=== PATIENT | male | born 1985 | race Caucasian/White ===

== ENCOUNTER 2020-08-09 14:14 | Emergency (ER) | payer OTHER ==
--- OUTSIDE RECORDS SUMMARY | 2020-08-09 14:23 | XMS REPORT | Summary of Care ---
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 fluticasone propionate Use 2 Sprays in 16 g 1 02/29/2020 Active 50 mcg/actuation nasal each nostril sprayIndications: daily. Seasonal allergic rhinitis, unspecified trigger, Allergic conjunctivitis of both eyes traZODone 100 mg Take 1 tablet 30 tablet 0 05/07/2020 06/06/20 20 Active tabletIndications: by mouth at Primary insomnia bedtime for 30 days. documented as of this encounter (statuses as of 05/22/2020) Active Problems No known active problemsdocumented as of this encounter (statuses as of 05/22/2020) Social History Tobacco Use Types Packs/Day Years Used Date Never Smoker Smokeless Tobacco: Never Used Alcohol Use Drinks/Week oz/Week Comments Yes 6 Cans of beer 6.0 1 x per month Sex Assigned at Date Recorded Not on file COVID-19 Exposure Response Date Recorded In the last month, have you been in contact with No / Unsure 05/12/2020 2:13 PM CDT someone who was confirmed or suspected to have Coronavirus / COVID-19? documented as of this encounter Last Filed Vital Signs Not on filedocumented in this encounter Plan of Treatment Health Maintenance Due Date Last Done Comments VARICELLA VACCINES (1 of 2 - 1985 2-dose childhood series) Depression Screening 1996 DTaP,Tdap,and Td Vaccines (1 - 2003 Tdap) INFLUENZA VACCINE (#1) 2020 PNEUMOCOCCAL 0-64 YEARS COMBINED Aged Out No longer eligible based on SERIES patient's age to complete this topic documented as of this encounter Results Not on filedocumented in this encounter Visit Diagnoses Diagnosis SORAYA (obstructive sleep apnea) Obstructive sleep apnea (adult) (pediatr ic) documented in this encounter documented as of this encounter
--- OUTSIDE RECORDS SUMMARY | 2020-08-09 14:23 | XMS REPORT | Summary of Care ---
:1985 Author Organization [facility] Address [address] [place] [address] Care Team Providers Name Role Phone Krista Perez MD Primary Care Provider Reason for Visit Reason Comments LAB covid swab Encounter Details Date Type Department Care Team Description 05/19/2020 Laboratory Only [facility] Willie Avelar MD [address] [place] [address] Dr [address] [place] [address] Suspected 2018 [facility] Only, Pcp Test Coronavirus LAB Infection (Primary Primary Care Dx) [address] [address] Allergies No Known Allergiesdocumented as of this encounter (statuses as of 05/19/2020) Medications Medication Sig Dispensed Refills Start Date [...] as of this encounter (statuses as of 05/19/2020) Active Problems No known active problemsdocumented as of this encounter (statuses as of 05/19/2020) Social History Tobacco Use Types Packs/Day Years [...] Signs Not on filedocumented in this encounter Nursing Notes Analia Vega MA - 05/19/2020 11:15 AM CDTPrasad Knight is a 34 year old male here for a Pre-op or Rule Out Covid-19 Nasopharyngeal Swab. Patient educated on plan of care for visit, swabbing technique, risks and benefits of test and length of time to receive results. Verbal consent obtained to perform test. CDC Fact Sheet for Patients provided to patient. Patient swabbed using appropriate nasopharyngeal technique, and patient tolerated well. Patient was discharged in stable condition. documented in this encounter Plan of Treatment Date Type Specialty Care Team Description 05/21/2020 Recreational Vehicle Repairer Visit Sleep Disorder Juan Avelar MD [address] [place] [address] [address] [place], [place] [id number] Diagnostic Lab, Web Sleep Name Type Priority Associated Diagnoses Order S chedule COVID-19 (ID NOW RAPID LAB STAT Suspected 2018 Ordered: 05/19/2020 TESTING) Coronavirus Infection Health Maintenance Due Date Last Done Comments [...] filedocumented in this encounter Visit Diagnoses Diagnosis Suspected 2018 Novel Coronavirus Infecti on - Primary documented in this encounter Additional Health Concerns Infection Onset Date Last Indicated Resolved Time COVID-19 Rule Out 05/19/2020 05/19/2020 documented as of this encounter documented as of this encounter
--- OUTSIDE RECORDS SUMMARY | 2020-08-09 14:23 | XMS REPORT | Summary of Care ---
:1985 Author Organization [facility] - Health Address [address] [place] [address] Care Team Providers Name Role Phone Krista Perez MD Primary Care Provider Encounter Details Date Type Department Care Team Description 05/13/2020 Orders Only [facility] Doctor Unassigned, No [address] [facility] [place] [address] [address] [place] [address] Allergies No Known Allergiesdocumented as of this encounter (statuses as of 05/13/2020) Medications Medication Sig Dispensed Refills Start Date [...] as of this encounter (statuses as of 05/13/2020) Active Problems No known active problemsdocumented as of this encounter (statuses as of 05/13/2020) Social History Tobacco Use Types Packs/Day Years [...] filedocumented in this encounter Plan of Treatment Date Type Specialty Care Team Description 05/19/2020 Laboratory Only Phlebotomy Willie Avelar MD [address] [place] [address] Dr [address] [place] [phone] Only, Pcp Test 05/21/2020 Velvet Weaver Visit Sleep Disorder Juan Avelar MD [address] [place] [address] Dr Go [address] [place] [id number] Diagnostic Lab, Web Sleep Health Maintenance Due Date Last Done Comments VARICELLA VACCINES (1 of 2 - 1985 2-dose childhood series) Depression Screening 1996 DTaP,Tdap,and Td Vaccines (1 - 2003 Tdap) INFLUENZA VACCINE (#1) 2020 PNEUMOCOCCAL 0-64 YEARS COMBINED Aged Out No longer eligible based on SERIES patient's age to complete this topic documented as of this encounter Procedures Procedure Name Priority Date/Time Associated Diagnosis Comme nts INSURANCE CORRESPONDENCE Routine 05/13/2020 12:01 AM CDT documented in this encounter Results Not on filedocumented in this encounter Insurance Payer Benefit Plan / Group Subscriber ID Effective Dates Phone Address Type CIGNA CIGNA GENERIC [id number] 2019-Present HMO/PPO/POS documented as of this encounter
--- OUTSIDE RECORDS SUMMARY | 2020-08-09 14:24 | XMS REPORT | Summary of Care ---
:1985 Author Organization [facility] Address [address] [place] [address] Care Team Providers Name Role Phone Krista Perez MD Primary Care Provider Reason for Visit Reason Onset Date Comments Refill Request 06/12/2020 Encounter Details Date Type Department Care Team Description 06/12/2020 Refill [facility] Family Medicine, Doctor Unass igned, No Refill Request [facility] on Name Primary Care [address], [place] [address] [address] [place] [address] Allergies No Known Allergiesdocumented as of this encounter (statuses as of 06/14/2020) Medications Medication Sig Dispensed Refills Start Date End Date Status amitriptyline 25 mg Take 1 tablet by 30 tablet 0 01/22/2020 Active tabletIndications: Other mouth at insomnia bedtime. fluticasone propionate Use 2 Sprays in 16 g 1 02/29/2020 Active 50 mcg/actuation nasal each nostril sprayIndications: daily. Seasonal allergic rhinitis, unspecified trigger, Allergic conjunctivitis of both eyes documented as of this encounter (statuses as of 06/14/2020) Active Problems No known active problemsdocumented as of this encounter (statuses as of 06/14/2020) Social History Tobacco Use Types Packs/Day Years Used Date Never Smoker Smokeless Tobacco: Never Used Alcohol Use Drinks/Week oz/Week Comments Yes 6 Cans of beer 6.0 1 x per month Sex Assigned at Date Recorded Not on file documented as of this encounter Last Filed Vital Signs Not on filedocumented in this encounter Miscellaneous Notes Telephone Encounter - Wade Mcdonough 06/12/2020 4:53 PM CDT Requested Prescriptions Pending Prescriptions Disp Refills traZODone 100 mg tablet 30 tablet 0 Sig: Take 1 tablet by mouth at bedtime. Psychiatry: Antidepressants Passed - 06/12/2020 4:15 PM Passed - Valid encounter within last 12 months Recent Visits Date Type Provider Dept 05/07/20 Office Visit Clinton Magana MD [facility] Med Team 1-Pcp 02/04/20 Telemedicine Visit Krista Perez MD [facility] Med Team 1-Pcp 01/21/20 Telemedicine Visit Krista Perez MD [facility] Med Team 1-Pcp Showing recent visits within past 365 days with a meds authorizing provider and meeting all other requirements Future Appointments No visits were found meeting these conditions. Showing future appointments within next 150 days with a meds authorizing provider and meeting all other requirements Rx is in Hx Not on current medication list Per protocol routing to MD to approve or deny. documented in this encounter Plan of Treatment Date Type Specialty Care Team Description 06/23/2020 Office Visit Psychiatry Olvin Jade MD [address] [place] [id number] Health Maintenance Due Date Last Done Comments [...] filedocumented in this encounter Visit Diagnoses Diagnosis Primary insomnia Persistent disorder of initiating or morgan ntaining sleep documented in this encounter Insurance Payer Benefit Plan / Group Subscriber ID Effective Dates Phone Address Type CIGNA CIGNA GENERIC [id number] 2019-Present HMO/PPO/POS documented as of this encounter
--- OUTSIDE RECORDS SUMMARY | 2020-08-09 14:24 | XMS REPORT | Summary of Care ---
:1985 Author Organization [facility] Address [address] [place] [address] Care Team Providers Name Role Phone Krista Perez MD Primary Care Provider Reason for Visit Reason Onset Date Comments Refill Request 06/16/2020 Encounter Details Date Type Department Care Team Description 06/16/2020 Refill [facility] Family Medicine, Doctor Unass igned, No Refill Request [facility] on Name Primary Care [address] [address] [address] [place] [address] Allergies No Known Allergiesdocumented as of this encounter (statuses as of 06/20/2020) Medications Medication Sig Dispensed Refills Start Date End Date Status amitriptyline 25 mg Take 1 tablet by 30 tablet 0 01/22/2020 Active tabletIndications: Other mouth at insomnia bedtime. fluticasone propionate Use 2 Sprays in 16 g 1 02/29/2020 Active 50 mcg/actuation nasal each nostril sprayIndications: daily. Seasonal allergic rhinitis, unspecified trigger, Allergic conjunctivitis of both eyes traZODone 100 mg Take 1 tablet by 30 tablet 0 06/20/2020 Active tabletIndications: mouth at Primary insomnia bedtime. documented as of this encounter (statuses as of 06/20/2020) Active Problems No known active problemsdocumented as of this encounter (statuses as of 06/20/2020) Social History Tobacco Use Types Packs/Day Years [...] 06/23/2020 Office Visit Psychiatry Olvin Jade MD [address] [place] [address] [phone] Health Maintenance Due Date Last Done Comments [...] Dates Phone Address Type CIGNA CIGNA GENERIC [id number] 2019-Present HMO/PPO/POS documented as of this encounter
--- OUTSIDE RECORDS SUMMARY | 2020-08-09 14:24 | XMS REPORT | Summary of Care ---
:1985 Author Organization [address] [address] Care Team Providers Name Role Phone Krista Perez MD Primary Care Provider Reason for Visit Reason Comments Erroneous encounter-disregard Encounter Details Date Type Department Care Team Description 06/12/2020 Telephone [facility] Family Clinton Magana MD [facility] Medicine, [address] encounter-disregard [place] [address] [place] [address], [facility]-[address] [place] [address] Allergies No Known Allergiesdocumented as of this [...] this encounter Miscellaneous Notes Telephone Encounter - Anna King RN - 06/20/2020 12:30 PM CDTThis is being sent to you as part of [employer] Chart Maintenance. The encounter was opened in error. Encounter closed. Anna VERDUGO RN- Nurse Clinician [facility] documented in this encounter Plan of Treatment Date Type Specialty Care Team Description 06/23/2020 Office Visit Psychiatry Olvin Jade MD [facility] [address] [id number] Health Maintenance Due Date Last Done Comments [...] Dates Phone Address Type CIGNA CIGNA GENERIC [id number] 2019-Present HMO/PPO/POS documented as of this encounter
--- OUTSIDE RECORDS SUMMARY | 2020-08-09 14:24 | XMS REPORT | Summary of Care ---
:1985 Author Organization [facility] Address [address] [place] [address] Care Team Providers Name Role Phone Krista Perez MD Primary Care Provider Reason for Visit Reason Comments Obstructive Sleep Apnea Results home sleep study Encounter Details Date Type Department Care Team Description 06/03/2020 Telephone [facility] Pulmonary- Yunior Avelar Obstructive Sleep Umair Rob MD Apnea; Results ([facility] [address] [place] [address] Dr sleep study) [address] [facility] [address] [place] [address] [place], [place] [phone] [address] [phone] Allergies No Known Allergiesdocumented as of this encounter (statuses as of 06/05/2020) Medications Medication Sig Dispensed Refills Start Date [...] as of this encounter (statuses as of 06/05/2020) Active Problems No known active problemsdocumented as of this encounter (statuses as of 06/05/2020) Social History Tobacco Use Types Packs/Day Years [...] this encounter Miscellaneous Notes Telephone Encounter - Jackie Giraldo RN - 06/05/2020 10:53 AM CDTLeft detailed message in self identified voicemail with HST results and options moving forward. Telephone Encounter - Cesar De La Rosa - 06/03/2020 1:51 PM CDTPer patient he is calling nurse back for results of HST. Please call. documented in this encounter Plan of Treatment Health [...] Dates Phone Address Type CIGNA CIGNA GENERIC [id number] 2019-Present HMO/PPO/POS documented as of this encounter
--- OUTSIDE RECORDS SUMMARY | 2020-08-09 14:24 | XMS REPORT | Continuity of Care Document ---
:1985 Author Organization [facility] t Address [address] [place] [address] Care Team Providers Name Role Phone Doctor Unassigned, Name Attending Clinician Unavailable Chino CHEUNG Attending Clinician Rosio CHEUNG T Attending Clinician Lab Attending Clinician Unavailable Only, Test Attending Clinician Unavailable Problems This patient has no known problems. Allergies, Adverse Reactions, Alerts This patient has no known allergies or adverse reactions. Medications This patient has no known medications. Procedures This patient has no known procedures. Encounters Start End Encounter Admission Attending Care Care Encounter Source Date/Time Date/Time Type Type Clinicians Facility Department ID 2020-07-03 2020-07-03 Orders Doctor CAROLA [id number] 00:00:00 00:00:00 Only Unassigned, MATTHEW [id number] [place] [facility] [id number] 2020-06-16 2020-06-16 Refill Doctor [place] [id number] 00:00:00 00:00:00 Unassigned, PRIMARY [id number] [place] [facility] 4.2.7.2.686 [place] [id number] 2020-06-12 2020-06-12 Refill Doctor [place] [id number] 00:00:00 00:00:00 Unassigned, PRIMARY [id number] [place] [facility] [id number] [place] [id number] 2020-06-12 2020-06-12 Telephone Ch[place] [facility] [id number] 00:00:00 00:00:00 [place] PRIMARY [id number] CARE [id number] [facility] [id number] 2020-06-03 2020-06-03 Telephone Rosio [facility] [id number] 00:00:00 00:00:00 Stra[place] T MULTISPEC [id number] [facility] 4.2.7.2.686 [place] [id number] [facility] 2020-05-21 2020-05-21 Manager Wound Care Lab, Sleep ASTER [id number] 09:34:43 12:02:50 Visit TG [id number] [facility] [id number] [id number] 2020-05-21 2020-05-21 Orders Rosio [facility] [id number] 00:00:00 00:00:00 Only Strahil T [place] [id number] [place] 4.2.7.2.686 [facility]io [id number] [address] 2020-05-20 2020-05-20 Orders Doctor SRIVASTAVA 1.2.840.114 [id number] 00:00:00 00:00:00 Only Unassigned, MATTHEW [id number] [place] [facility] 4.2.7.2.686 [id number] 2020-05-19 2020-05-19 Laboratory Only, Pcp [facility] 1.2.840.114 [id number] 11:21:06 11:36:06 Only Test PRIMARY [id number] CARE 4.2.7.2.686 [facility] [id number] 2020-05-13 2020-05-13 Orders Doctor SRIVASTAVA [id number] 00:00:00 00:00:00 Only Unassigned, MATTHEW [id number] [place] [facility] 4.2.7.2.686 [id number] 2020-05-07 2020-05-07 Office Tonyaalbaro [facility] [id number] 15:47:29 16:51:41 Visit [facility] [id number] [facility] [id number] [facility] [id number] Results This patient has no known results.
--- OUTSIDE RECORDS SUMMARY | 2020-08-09 14:24 | XMS REPORT | Summary of Care ---
:1985 Author Organization [facility] - Health Address [address] [place] [address] Care Team Providers Name Role Phone Krista Perez MD Primary Care Provider Encounter Details Date Type Department Care Team Description 07/03/2020 Orders Only [facility] Doctor Unassigned, No 301 [facility] [place] [address] [address] [place] [address] Allergies No Known Allergiesdocumented as of this encounter (statuses as of 07/07/2020) Medications Medication Sig Dispensed Refills Start Date [...] as of this encounter (statuses as of 07/07/2020) Active Problems No known active problemsdocumented as of this encounter (statuses as of 07/07/2020) Social History Tobacco Use Types Packs/Day Years Used Date Never Smoker Smokeless Tobacco: Never Used Alcohol Use Drinks/Week oz/Week Comments Yes 6 Cans of beer 6.0 1 x per month Sex Assigned at Date Recorded Not on file COVID-19 Exposure Response Date Recorded In the last month, have you been in contact with No / Unsure 07/03/2020 9:36 AM CDT someone who was confirmed or suspected [...] Procedure Name Priority Date/Time Associated Diagnosis Comme [facility] Routine 07/03/2020 12:01 AM PATIENT INFORMATION CDT documented in this encounter Results Not on filedocumented in this encounter Insurance Payer Benefit Plan / Group Subscriber ID Effective Dates Phone Address Type CIGNA CIGNA GENERIC [id number] 2019-Present HMO/PPO/POS documented as of this encounter
--- OUTSIDE RECORDS SUMMARY | 2020-08-09 14:24 | XMS REPORT | Summary of Care ---
:1985 Author Organization [facility] - Health Address [address] [place] [address] Care Team Providers Name Role Phone Krista Perez MD Primary Care Provider Encounter Details Date Type Department Care Team Description 05/20/2020 Orders Only [facility] Doctor Unassigned, No 301 [facility] [place] [address] [address] [place] [address] Allergies No Known Allergiesdocumented as of this encounter (statuses as of 05/26/2020) Medications Medication Sig Dispensed Refills Start Date [...] as of this encounter (statuses as of 05/26/2020) Active Problems No known active problemsdocumented as of this encounter (statuses as of 05/26/2020) Social History Tobacco Use Types Packs/Day Years [...] Name Priority Date/Time Associated Diagnosis Comme nts SLEEP STUDY DATA REPORT Routine 05/20/2020 12:01 AM CDT documented in this encounter Results Not on filedocumented in this encounter Insurance Payer Benefit Plan / Group Subscriber ID Effective Dates Phone Address Type CIGNA CIGNA GENERIC [id number] 2019-Present HMO/PPO/POS documented as of this encounter
--- OUTSIDE RECORDS SUMMARY | 2020-08-09 14:24 | XMS REPORT | Summary of Care ---
:1985 Author Organization [facility] Address [address] [place] [address] Care Team Providers Name Role Phone Krista Perez MD Primary Care Provider Encounter Details Date Type Department Care Team Description 05/21/2020 Orders Only [facility] Pulmonary Yunior Baum MD Clinic [address], [address] [place] [address] [place] [address] [phone] Allergies No Known Allergiesdocumented as of this [...] Priority Date/Time Associated Diagnosis Comme nts SLEEP LAB RESULTS Routine 05/21/2020 12:01 AM CDT documented in this encounter Results Not on filedocumented in this encounter Insurance Payer Benefit Plan / Group Subscriber ID Effective Dates Phone Address Type CIGNA CIGNA GENERIC [id number] 2019-Present HMO/PPO/POS documented as of this encounter
--- NOTE | 2020-08-09 15:13 | ER ---
Nurse's Notes [facility] Name: Prasad Knight Age: 34 yrs Sex: Male : 1985 Arrival Date: 08/09/2020 Time: 14:20 Bed 18 Private MD: Diagnosis: Pain in right knee Presentation: 08/09 15:06 Chief complaint: Patient states: has had right knee pain for 2 months , was told he iw needs to stay off of it but needs a work note. Coronavirus screen: At this time, the client does not indicate any symptoms associated with coronavirus-19. Ebola Screen: Patient negative for fever greater than or equal to 101.5 degrees Fahrenheit, and additional compatible Ebola Virus Disease symptoms Patient denies exposure to infectious person. Patient denies travel to an Ebola-affected area in the 21 days before illness onset. No symptoms or risks identified at this time. Initial Sepsis Screen: Does the patient meet any 2 criteria? No. Patient's initial sepsis screen is negative. Does the patient have a suspected source of infection? No. Patient's initial sepsis screen is negative. Risk Assessment: Do you want to hurt yourself or someone else? Patient reports no desire to harm self or others. Onset of symptoms was June 2020. 15:06 Method Of Arrival: Ambulatory iw 15:06 Acuity: FEMI 4 iw Triage Assessment: 15:57 General: Appears in no apparent distress. Behavior is calm, cooperative, appropriate ll1 for age. Historical: - Allergies: 16:30 No Known Allergies; ll1 - PSHx: 16:30 None; ll1 - Immunization history:: Flu vaccine is up to date. - Social history:: Smoking status: Patient denies any tobacco usage or history of. Screenin:55 Abuse screen: Denies threats or abuse. Nutritional screening: No deficits noted. ll1 Tuberculosis screening: No symptoms or risk factors identified. Fall Risk Ambulatory Aid- Crutches/Cane/Walker (15 pts). Total Galan Fall Scale indicates No Risk (0-24 pts). Assessment: 15:45 General: Appears uncomfortable, Behavior is calm, cooperative. Pain: Complains of pain ll1 in right knee Quality of pain is described as aching. Neuro: No deficits noted. Cardiovascular: No deficits noted. Respiratory: No deficits noted. Musculoskeletal: Circulation, motion, and sensation intact. Capillary refill < 3 seconds, Range of motion: intact in all extremities, Reports pain in right knee. Injury Description: unknown specific injury. Vital Signs: 15:06 BP 141 / 82; Pulse 86; Resp 16; Temp 98.0; Pulse Ox 100% on R/A; iw ED Course: 14:20 Patient arrived in ED. mr 14:43 Natali Saeed FNP-C is [facility]. kb 14:43 Bart Quesada MD is Attending Physician. kb 15:08 Triage completed. iw 15:08 Arm band placed on. iw 15:45 Patient has correct armband on for positive identification. Bed in low position. Call ll1 light in reach. Side rails up X 1. Cardiac monitoring not applicable on this patient. 15:57 No provider procedures requiring assistance completed. Patient did not have IV access ll1 during this emergency room visit. Administered Medications: No medications were administered Outcome: 15:12 Discharge ordered by MD. kb 15:57 Patient left the ED. ll1 15:57 Discharged to home ambulatory. ll1 15:57 Condition: stable 15:57 Discharge instructions given to patient, Instructed on discharge instructions, follow up and referral plans. medication usage, Demonstrated understanding of instructions, follow-up care, medications, Prescriptions given X 1. Signatures: Natali Saeed FNP-C FNP-Ckb Rivera, Mary mr Williams, Irene, RN DANIELA Markie Thompson RN RN 1
--- NOTE | 2020-08-09 15:13 | EDPHYS ---
Physician Documentation [facility] Name: Prasad Knight Age: 34 yrs Sex: Male : 1985 Arrival Date: 08/09/2020 Time: 14:20 Bed 18 Private MD: ED Physician Bart Quesada HPI: 08/09 15:20 This 34 yrs old Male presents to ER via Ambulatory with complaints of Knee kb Pain. 15:20 The patient presents with pain, swelling. The complaints affect the right knee. kb Context: resulted from an unknown cause, the patient can fully bear weight, the patient is able to ambulate. Onset: The symptoms/episode began/occurred 2 month(s) ago. Modifying factors: The symptoms are alleviated by nothing. the symptoms are aggravated by excessive use. Associated signs and symptoms: Pertinent positives: swelling, Pertinent negatives calf tenderness, fever, nausea, numbness, rash, tingling, vomiting, warmth, weakness. Treatment prior to arrival includes: no previous treatment. Severity of symptoms: At their worst the symptoms were moderate, in the emergency department the symptoms are unchanged. The patient has not experienced similar symptoms in the past. The patient has not recently seen a physician. "I have had problems with my knee for 2 months. I've been to a chiropractor and PT, they both said I need to rest the knee to heal it. I work for [employer] and my lieutenant told me to come get a work note from here for 2 weeks so I could take sick time. I was also told I could get a MRI here." Pt reports pain and swelling gets better after resting knee, but when he overworks it or moves wrong at work it causes the symptoms to return. Pt denies injury.. Historical: - Allergies: 16:30 No Known Allergies; ll1 - PSHx: 16:30 None; ll1 - Immunization history:: Flu vaccine is up to date. - Social history:: Smoking status: Patient denies any tobacco usage or history of. ROS: 15:17 MS/extremity: Positive for pain, of the right knee. kb 15:19 Constitutional: Negative for fever, chills, and weight loss, Skin: Negative for injury, kb rash, and discoloration, Neuro: Negative for headache, weakness, numbness, tingling, and seizure. Exam: 15:19 Constitutional: This is a well developed, well nourished patient who is awake, alert, kb and in no acute distress. Head/Face: Normocephalic, atraumatic. Skin: Warm, dry with normal turgor. Normal color with no rashes, no lesions, and no evidence of cellulitis. MS/ Extremity: Pulses equal, no cyanosis. Neurovascular intact. Full, normal range of motion. Neuro: Awake and alert, GCS 15, oriented to person, place, time, and situation. Cranial nerves II-XII grossly intact. Motor strength 5/5 in all extremities. Sensory grossly intact. Cerebellar exam normal. Normal gait. 15:19 Respiratory: the patient does not display signs of respiratory distress, Respirations: normal. Vital Signs: 15:06 BP 141 / 82; Pulse 86; Resp 16; Temp 98.0; Pulse Ox 100% on R/A; iw MDM: 15:02 Patient medically screened. kb 15:12 Data reviewed: vital signs, nurses notes. Data interpreted: Pulse oximetry: on room air kb is 100 %. Interpretation: normal. Counseling: I had a detailed discussion with the patient and/or guardian regarding: the historical points, exam findings, and any diagnostic results supporting the discharge/admit diagnosis, the need for outpatient follow up, a orthopedic surgeon, to return to the emergency department if symptoms worsen or persist or if there are any questions or concerns that arise at home. Administered Medications: No medications were administered Disposition: 08/09/20 15:12 Discharged to Home. Impression: Pain in right knee. - Condition is Stable. - Discharge Instructions: Musculoskeletal Pain, Knee Pain, [id number]. - Prescriptions for Diclofenac Sodium 75 mg Oral Tablet, Delayed Release (E.C.) - take 1 tablet by ORAL route 2 times per day As needed; 30 tablet. - Work release form, Medication Reconciliation Form, Thank You Letter, Antibiotic Education, Prescription Opioid Use form. - Follow up: Emergency Department; When: As needed; Reason: Worsening of condition. Follow up: Private Physician; When: 2 - 3 days; Reason: Recheck today's complaints, Continuance of care, Re-evaluation by your physician. Addendum: 08/11/2020 08:39 Co-signature as Attending Physician, Bart Quesada MD I agree with the assessment and c zamora plan of care. Signatures: Natali Saeed, TYRE BUILDER-C TYRE BUILDER-Ckb Bart Quesada MD MD cha Lewis, Lynsay, RN RN ll1 Corrections: (The following items were deleted from the chart) 08/09 15:19 15:17 Constitutional: Negative for fever, chills, and weight loss, Cardiovascular: kb Negative for chest pain, palpitations, and edema, Respiratory: Negative for shortness of breath, cough, wheezing, and pleuritic chest pain, Abdomen/GI: Negative for abdominal pain, nausea, vomiting, diarrhea, and constipation, Back: Negative for injury and pain, Skin: Negative for injury, rash, and discoloration, Neuro: Negative for headache, weakness, numbness, tingling, and seizure, kb 15:19 15:17 Constitutional: This is a well developed, well nourished patient who is awake, kb alert, and in no acute distress. Head/Face: Normocephalic, atraumatic. Chest/axilla: Normal chest wall appearance and motion. Nontender with no deformity. No lesions are appreciated. Cardiovascular: Regular rate and rhythm with a normal S1 and S2. No gallops, murmurs, or rubs. Normal PMI, no JVD. No pulse deficits. Respiratory: Lungs have equal breath sounds bilaterally, clear to auscultation and percussion. No rales, rhonchi or wheezes noted. No increased work of breathing, no retractions or nasal flaring. Abdomen/GI: Soft, non-tender, with normal bowel sounds. No distension or tympany. No guarding or rebound. No evidence of tenderness throughout. Skin: Warm, dry with normal turgor. Normal color with no rashes, no lesions, and no evidence of cellulitis. MS/ Extremity: Pulses equal, no cyanosis. Neurovascular intact. Full, normal range of motion. Neuro: Awake and alert, GCS 15, oriented to person, place, time, and situation. Cranial nerves II-XII grossly intact. Motor strength 5/5 in all extremities. Sensory grossly intact. Cerebellar exam normal. Normal gait. kb 15:57 15:12 08/09/2020 15:12 Discharged to Home. Impression: Pain in right knee. Condition is ll1 Stable. Forms are Medication Reconciliation Form, Thank You Letter, Antibiotic Education, Prescription Opioid Use. Follow up: Emergency Department; When: As needed; Reason: Worsening of condition. Follow up: Private Physician; When: 2 - 3 days; Reason: Recheck today's complaints, Continuance of care, Re-evaluation by your physician. kb
[2020-08-09 16:12] VITALS: BP 141/82; TEMP 98; O2SAT 100
== END 2020-08-09 15:57 | disposition home or self-care (01) ==
LOC: ER 14:14
DX: M25.561 Pain in right knee (principal)
CPT/HCPCS: 99282